=== PATIENT | female | born 1960 | race Caucasian/White ===

== ENCOUNTER 2017-07-25 15:00 | Inpatient (IN) | END 2017-07-28 16:06 | disposition home or self-care (01) | DRG 195 ==

== ENCOUNTER 2018-06-27 17:38 | Inpatient (IN) | payer OTHER ==
[~2018-06-27] VITALS: Ht 157.5 cm; Wt 77.8 kg
[~2018-06-27 17:38] MED LIST: ADV10050 INHALATION; ASPI-831 PO; BENZ-5 PO; GLIP5TAB13 PO; GUAI600T23 PO; INSU100I33 SC; LEVO750T25 PO; METF500T PO; OMEP20CA16 PO; SIMV40TA7 PO
[2018-06-27 19:30] VITALS: PULSE 90
[2018-06-27 19:57] VITALS: Ht 157.5 cm; Wt 77.8 kg
[2018-06-27 20:00] VITALS: BP 142/72; PULSE 88; PULSE 90; RESP 19
[2018-06-27] MEDS ORDERED: DOCUSATE SODIUM 100 MG CAP PO PRN (21:00)
[2018-06-27] MEDS ORDERED: NITROGLYCERIN (SL) 0.4 MG TAB SL PRN (21:00)
[2018-06-27] MEDS ORDERED: BENZONATATE 100 MG CAP PO PRN (21:00)
[2018-06-27] MEDS ORDERED: INSULIN GLARGINE [LANtus] 3 ML PEN SC SCH ×2 (21:00→23:30)
[2018-06-27] MEDS ORDERED: ONDANSETRON 4 MG INJ IV PRN (21:00)
[2018-06-27] MEDS ORDERED: NACL 0.9% 3 ML SYG IV SCH (21:00)
[2018-06-27] MEDS ORDERED: ACETAMINOPHEN 325 MG TAB PO PRN (21:00)
[2018-06-27] MEDS ORDERED: BISACODYL (EC) 5 MG TAB PO PRN (21:00)
[2018-06-27] MEDS ORDERED: HYDROCODONE/APAP (5/325) TAB PO PRN (21:00)
--- NOTE | 2018-06-27 21:01 | HP ---
Date/Time of Note Date/Time of Note DATE: 06/27/18 TIME: 21:01 Assessment/Plan VTE Prophylaxis Pharmacological prophylaxis: heparin Assessment/Plan Hospital Course This is a 58-year-old female being admitted to the telemetry floor for: #1 dyspnea and wheezing: Likely multifactorial secondary to undiagnosed CHF/asthma exacerbation. Patient does have wheezing on examination as well as lower extremity edema. At the current time we will give the patient scheduled nebulizers, Lasix 40 mg IV daily. Strict I's and O's. 1200 cc fluid restriction. I will hold off on steroids at the current time given the patient's elevated blood sugars. Consider steroids in the a.m. if indicated. Will obtain an EKG. patient denies any chest pain, nonetheless we will trend tr oponins, #2 suspect new diagnosis of CHF: We will obtain an echocardiogram, will check a BNP level it was 151 at the transferring facility.. Lasix 40 mg IV daily. Consider cardiology consultation. #3 asthma exacerbation: Need to confirm whether patient had a smoking history. Nebulizers scheduled at the current time, hold off on steroids given patient's elevated blood sugars once these are better controlled consider initiation of steroids if indicated. Continue home inhaler #4 diabetes mellitus: Resume patient's home medications, check hemoglobin A 1C, insulin sliding scale #5 Hyperlipidemia: Continue statin check lipid panel #6 GERD: Continue PPI #7 DVT GI prophylaxis: Heparin, PPI Further treatment strategy will be implemented as per the clinical course HPI/ROS Admit Date/Time Admit Date/Time Jun 27, 2018 at 18:49 Hx of Present Illness Chief complaint: Shortness of breath, chest pain This is a 58-year-old female with a past medical history of hypertension hyperlipidemia diabetes mellitus, asthma, cardiomegalu,, who presented to the ED at [facility] with shortness of breath times 1 week. Patient reported her symptoms are worse last night. She also had an associated productive cough with clear sputum and she positive orthopnea and dyspnea on exertion. She denied any abdominal pain nausea vomiting or diarrhea. Denies any body aches. Denies any history of CHF or tuberculosis. She did report sick contacts at home. Patient does take Advair carvedilol simvastatin omeprazole daily. She was seen in the past and was diagnosed with asthma vitals on presentation at the transfer facility showed temperature of 36.2 C/heart rate of 82/BP 115/52/respirations 24/SPO2 88% on room air The patient was given Solu-Medrol Lasix and a nebulization treatment at the transfer facility along with Rocephin Pertinent laboratory findings from the transfer facility please see chart for full details: White blood cells 9.3/hemoglobin 9.5/hematocrit 28.7/platelet count 351 BNP 151 Chest x-ray persistent mediastinal widening and enlargement of the hilum suspicious for adenopathy new moderate-sized right pleural effusion with lower lobe compressive atelectasis and volume loss stable cardiomegaly and atherosclerotic aortic calcification screws projected over T2 and T7 vertebral body may be artifactual or represent something lying on the skin surface Allergies: NKDA Medications: See MAR ROS Const: As per HPI Eyes : No pain discharge or redness or change in visual acuity ENT: No pain, sore throat, congestion, congestion, dysphagia or discharge Respiratory: As per HPI Cardiovascular: As per HPI GI : no change in appetite, abdominal pain, nausea, vomiting, diarrhea, constipation, or change in the color his stool Genitourinary: No dysuria, hematuria, flank pain , discharge or CVA tenderness Musculoskeletal: No joint pain, back pain, neck pain, restricted range of motion in neck or joints Skin: No rash, bruising or hives Neuro: No headache, dizziness, syncope, seizure, focal weakness Endocrine: No polyuria, polydipsia, temperature intolerance Psych: No hallucination, depression, anxiety or suicidal ideation PMH/Family/Social Past Medical History hypertension hyperlipidemia diabetes mellitus, asthma, cardiomegaly, GERD Medications Current Medications Aspirin (Aspirin) 81 mg DAILY PO ; Start 06/28/18 at 09:00; Status UNV Benzonatate (Tessalon) 200 mg TID PRN PO cough; Start 06/27/18 at 21:00; Status UNV Insulin Glargine (Lantus) 100 unit QHS SC ; Start 06/27/18 at 21:00; Status UNV Miscellaneous Information 20 mg DAILY PO ; Start 06/28/18 at 09:00; Status UNV Miscellaneous Information 1 inh BID INHALATION ; Start 06/27/18 at 21:00; Status UNV Miscellaneous Information 40 mg QHS PO ; Start 06/27/18 at 21:00; Status UNV Miscellaneous Information (* Miscellaneous Pharmacy Order) Discontinue current oral sulfonylur... ONCE ONCE XX ; Start 06/27/18 at 21:00; Stop 06/27/18 at 21:01; Status UNV Diagnostic Test (Pha) (Accu-Chek) 1 XX ; Start 06/28/18 at 02:00; Status UNV Miscellaneous Information (* Miscellaneous Pharmacy Order) HYPOGLYCEMIA PROTOCOL w... ONCE ONCE XX ; Start 06/27/18 at 21:00; Stop 06/27/18 at 21:01; Status UNV Insulin Aspart (Novolog Insulin Pen) NOVOLOG *MILD* ALGORITHM WITH MEALS BEDTIME SC ; Start 06/27/18 at 21:00; Status UNV Miscellaneous Information (* Miscellaneous Pharmacy Order) Discontinue all previ... ONCE ONCE XX ; Start 06/27/18 at 21:00; Stop 06/27/18 at 21:01; Status UNV IV Flush (NS 3 ml) 3 ml PER PROTOCOL IV ; Start 06/27/18 at 21:00; Status UNV Ondansetron HCl (Zofran Inj) 4 mg Q6H PRN IV NAUSEA/VOMITING; Start 06/27/18 at 21:00; Status UNV Nitroglycerin (Nitroglycerin (Sl Tab) 0.4 Mg) 1 tab Q5M PRN SL .CHEST PAIN; Start 06/27/18 at 21:00; Status UNV Acetaminophen (Tylenol Tab) 650 mg Q6H PRN PO .PAIN 1-3 OR TEMP; Start 06/27/18 at 21:00; Status UNV Acetaminophen/ Hydrocodone Bitart ([place] (5/325)) 1 tab Q6H PRN PO .PAIN 4-6; Start 06/27/18 at 21:00; Status UNV Docusate Sodium (Colace) 100 mg Q12H PRN PO .CONSTIPATION; Start 06/27/18 at 21:00; Status UNV Bisacodyl (Dulcolax) 5 mg DAILY PRN PO .CONSTIPATION; Start 06/27/18 at 21:00; Status UNV Heparin Sodium (Porcine) (Heparin (5000 Units/1ml)) 5,000 unit Q8 SC ; Start 06/27/18 at 22:00; Status UNV Coded Allergies: No Known Allergies (Verified Allergy, Unknown, 07/25/17) Past Surgical History Cholecystectomy Family History Significant Family History: no pertinent family hx Social History Alcohol Use: none Smoking Status: Unknown if ever smoked Drug Use: none Exam/Review of Systems Vital Signs Vitals Vital Signs Date Temp Pulse Resp B/P (MAP) Pulse Ox O2 O2 Flow FiO2 Time Delivery Rate 06/27/18 88 20:00 06/27/18 98.4 19 142/72 98 20:00 (95) Exam Exam General: Patient is currently sitting upright in bed in no acute respiratory distress HEENT: Atraumatic, normocephalic. The pupils are equal, round and reactive. Extraocular motor are intact Neck: Supple with full range of motion. No rigidity or meningismus Chest: Nontender Lungs: Coarse breath sounds and wheezing bilaterally, questionable rales at the bases, nonlabored breathing Heart: Normal S1-S2, Regular rhythm and rate. No murmur, S3, or S4 Abdomen: Soft , nontender, nondistended , bowel sounds are present. No guarding no rebound tenderness , No masses or organomegaly. No costovertebral temporal angle mass Extremities: Bilateral 1+ pitting edema lower extremities Neurologic: Normal mental status, speech normal, cranial nerves II through XII are intact, motor and sensory are intact, TAMMI LUGO Jun 27, 2018 21:01
[2018-06-27] MEDS ORDERED: GLUCOSE GEL 15 GRAM TUBE BUCCAL PRN (21:30)
[2018-06-27] MEDS ORDERED: DEXTROSE 50% 50 ML SYRINGE IV PRN ×2 (21:30)
[2018-06-27] MEDS ORDERED: GLUCAGON 1 MG INJ IM PRN (21:30)
[2018-06-27] MEDS ORDERED: GLUCOSE GEL 15 GRAM TUBE PO PRN ×2 (21:30)
[2018-06-27] MEDS: ATORVASTATIN 20 MG TAB PO SCH (22:34)
[2018-06-27] MEDS: INSULIN ASPART [NOVOLOG] 3 ML PEN SC SCH (22:50)
[2018-06-27] MEDS: HEPARIN 5,000 UNIT/1 ML VIAL SC SCH (22:51)
[2018-06-27] MEDS ORDERED: INSULIN ASPART [NOVOLOG] 3 ML PEN SC ONE (23:30)
[2018-06-28] VITALS (10 sets, daily range): BP systolic 97–135; BP diastolic 54–62; PULSE 80–93; RESP 18–20
[2018-06-28] MEDS ORDERED: predniSONE 20 MG TAB PO SCH (01:00)
[2018-06-28] MEDS: FLUTICASONE/VILANTEROL 100-25 INH SCH ×2 (01:00→08:30)
[2018-06-28] MEDS: FUROSEMIDE 40 MG INJ IV SCH (01:53)
[2018-06-28] MEDS: ACCU-CHEK XX SCH (02:00)
[2018-06-28] MEDS ORDERED: INSULIN ASPART [NOVOLOG] 3 ML PEN SC ONE (02:30)
[2018-06-28] MEDS: ALBUTEROL/IPRATROPIUM (NEB) 3 ML AMP HHN PRN ×2 (03:04→17:30)
[2018-06-28] MEDS: PANTOPRAZOLE (EC) 40 MG TAB PO SCH (06:41)
[2018-06-28] MEDS: HEPARIN 5,000 UNIT/1 ML VIAL SC SCH ×3 (06:52→22:38)
[2018-06-28] MEDS: ASPIRIN 81 MG TAB PO SCH (08:29)
[2018-06-28] MEDS ORDERED: INSULIN GLARGINE [LANtus] 3 ML PEN SC SCH (09:00)
[2018-06-28] MEDS ORDERED: FLUTICASONE/VILANTEROL 100-25 INH SCH (09:00)
[2018-06-28] MEDS ORDERED: INFLUENZA VIRUS VACCINE 0.5 ML (DISPENSING) IM* ONE (09:00)
[2018-06-28] MEDS: INSULIN ASPART [NOVOLOG] 3 ML PEN SC SCH ×5 (09:04→21:31)
[2018-06-28] MEDS: INSULIN GLARGINE [LANTus] (100 UNITS/ML) SYG SC SCH ×2 (10:19→21:20)
--- NOTE | 2018-06-28 12:08 | PN ---
Date/Time of Note Date/Time of Note DATE: 06/28/18 TIME: 12:08 Assessment/Plan VTE Prophylaxis Risk score (from Nsg)>0 risk: 2 SCD applied (from Nsg): Yes Pharmacological prophylaxis: heparin Lines/Catheters IV Catheter Type (from Nrsg): Peripheral IV Assessment/Plan Hospital Course S: still requiring O2 and coughing, producing phlegm -quit smoking about 1 month ago O: Constitutional: alert, oriented Head: atraumatic, normocephalic Neck: non-tender, supple Respiratory: R basal crackles , bouts of coughing Cardiovascular: regular rate and rhythm Gastrointestinal: S/ NT / ND / +BS Extremities: no edema, good radial pulses CXR: 1. Diffuse interstitial opacities in both lungs with small bilateral pleural effusions likely representing pulmonary edema in the setting of cardiomegaly. echo : EF 55%, abn diastolic fxn, Pul Pressure 55% assessment and plan: 58-year-old female with a past medical history of hypertension hyperlipidemia diabetes mellitus, asthma, cardiomegalu,, who presented to the ED at [facility] with shortness of breath times 1 week 1. Acute resp failure -2/2 #2 and #3 -still requiring supplemental O2 at 2L, -weaning as tolerated -has never been on home O2 2. New onset CHF ? Diastolic dysfxn -H2FPEF score of at least 5 and BNP >100 -ongoing gentle diuresis -cardiology consult ? -ACS ruled out 3. Mild COPD exacerbation -inhaled steroids, abx , bronchodilator -s/p IV steroids in ER and PO steroids 40mg X1 -no further wheezing on exam -will hold off on further steroids for now and see how she does olivier with hyperglycemia 4. DM2 A1c 10.2 -in house levels are still suboptimal -adjust insulin dosing -steroid dose likely contributed to hyperglycemia 5. CKD ? -creatinine improving?, continue serial labs 6. GERD: -home PPI 7. Hypomagnesemia -replete 8. Low TSH -in the setting of acute illness, likely unreliable, T4 wnl -recommend repeat in 6 weeks 9. NC Anemia -stable 10. Leucocytosis -reactive? steroids induced ? 12. Tobacco user -unconvincingly states she quit about 1 month ago, she was commended and counselled for at least 3 mins on the need to stay away from nicotine and options available to her to help with quitting and benefits of cessation, she verbalized understanding dispo: -continue supportive care, POC as above Result Diagram: 06/28/18 0340 06/28/18 0340 Results 24hrs Laboratory Tests Test 06/27/18 21:07 06/27/18 22:26 06/28/18 01:58 06/28/18 03:00 White Blood Count 10.6 Red Blood Count 3.39 L Hemoglobin 10.0 L Hematocrit 31.3 L Mean Corpuscular 92.3 Volume Mean Corpuscular 29.5 Hemoglobin Mean Corpuscular 31.9 L Hemoglobin Concent Red Cell 13.0 Distribution Width Platelet Count 372 Mean Platelet Volume 8.9 Immature 1.800 H Granulocytes % Neutrophils % 87.4 H Lymphocytes % 9.8 L Monocytes % 0.8 Eosinophils % 0.0 Basophils % 0.2 Nucleated Red Blood 0.0 Cells % Immature 0.190 H Granulocytes # Neutrophils # 9.3 H Lymphocytes # 1.0 Monocytes # 0.1 L Eosinophils # 0.0 Basophils # 0.0 Nucleated Red Blood 0.0 Cells # Sodium Level 139 Potassium Level 4.3 Chloride Level 103 Carbon Dioxide Level 28 Anion Gap 8 Blood Urea Nitrogen 26 H Creatinine 1.04 H Est Glomerular 54 L Filtrat Rate mL/min Glucose Level 429 *H Calcium Level 8.8 Total Bilirubin 0.0 L Direct Bilirubin 0.00 Indirect Bilirubin 0.0 Aspartate Amino 14 L Transf (AST/SGOT) Alanine 12 L Aminotransferase (AL T/SGPT) Alkaline Phosphatase 127 H Creatine Kinase 141 Creatine Kinase 2.1 Index Creatinine Kinase MB 3.03 H (Mass) Troponin I < 0.012 B-Type Natriuretic 440 H Peptide Total Protein 6.4 Albumin 3.1 L Globulin 3.30 H Albumin/Globulin 0.93 Ratio Bedside Glucose 429 *H 385 H Urine Color STRAW Urine Clarity CLEAR Urine pH 5.0 Urine Specific 1.010 [place] Urine Ketones NEGATIVE Urine Nitrite NEGATIVE Urine Bilirubin NEGATIVE Urine Urobilinogen NEGATIVE Urine Leukocyte NEGATIVE Esterase Urine Microscopic 2 RBC Urine Microscopic 2 WBC Urine Hemoglobin 1+ H Urine Glucose 3+ H Urine Total Protein 2+ H Test 06/28/18 03:39 06/28/18 03:40 06/28/18 07:54 06/28/18 10:15 Hemoglobin A1c 10.2 H Creatine Kinase 144 Creatine Kinase 2.8 Index Creatinine Kinase MB 3.98 H (Mass) Troponin I 0.017 White Blood Count 10.9 H Red Blood Count 3.38 L Hemoglobin 10.0 L Hematocrit 30.5 L Mean Corpuscular 90.2 Volume Mean Corpuscular 29.6 Hemoglobin Mean Corpuscular 32.8 Hemoglobin Concent Red Cell 12.8 Distribution Width Platelet Count 392 Mean Platelet Volume 9.0 Immature 1.400 H Granulocytes % Neutrophils % 80.3 H Lymphocytes % 14.6 L Monocytes % 3.4 Eosinophils % 0.0 Basophils % 0.3 Nucleated Red Blood 0.0 Cells % Immature 0.150 H Granulocytes # Neutrophils # 8.8 H Lymphocytes # 1.6 Monocytes # 0.4 Eosinophils # 0.0 Basophils # 0.0 Nucleated Red Blood 0.0 Cells # Sodium Level 139 Potassium Level 4.1 Chloride Level 99 Carbon Dioxide Level 30 Anion Gap 10 Blood Urea Nitrogen 31 H Creatinine 1.29 H Est Glomerular 42 L Filtrat Rate mL/min Glucose Level 328 H Calcium Level 8.8 Magnesium Level 1.6 L Total Bilirubin 0.1 L Direct Bilirubin 0.00 Indirect Bilirubin 0.1 Aspartate Amino 14 L Transf (AST/SGOT) Alanine 17 Aminotransferase (AL T/SGPT) Alkaline Phosphatase 133 H Total Protein 6.4 Albumin 3.2 L Globulin 3.20 Albumin/Globulin 1.00 Ratio Thyroid Stimulating 0.323 L Hormone (TSH) Bedside Glucose 282 H 307 H Test 06/28/18 11:45 Bedside Glucose 315 H Exam/Review of Systems Exam Vitals Vital Signs Date Temp Pulse Resp B/P (MAP) Pulse Ox O2 O2 Flow FiO2 Time Delivery Rate 06/28/18 98.0 86 20 128/60 99 11:30 (82) 06/28/18 Nasal 2.0 27 03:07 Cannula Intake and Output 06/27/18 06/27/18 06/28/18 1515:00 23:00 07:00 IntakeIntake Total 650 ml OutputOutput Total 500 ml BalanceBalance 150 ml Results Results 24hrs Laboratory Tests Test 06/27/18 21:07 06/27/18 22:26 06/28/18 01:58 06/28/18 03:00 White Blood Count 10.6 Red Blood Count 3.39 L Hemoglobin 10.0 L Hematocrit 31.3 L Mean Corpuscular 92.3 Volume Mean Corpuscular 29.5 Hemoglobin Mean Corpuscular 31.9 L Hemoglobin Concent Red Cell 13.0 Distribution Width Platelet Count 372 Mean Platelet Volume 8.9 Immature 1.800 H Granulocytes % Neutrophils % 87.4 H Lymphocytes % 9.8 L Monocytes % 0.8 Eosinophils % 0.0 Basophils % 0.2 Nucleated Red Blood 0.0 Cells % Immature 0.190 H Granulocytes # Neutrophils # 9.3 H Lymphocytes # 1.0 Monocytes # 0.1 L Eosinophils # 0.0 Basophils # 0.0 Nucleated Red Blood 0.0 Cells # Sodium Level 139 Potassium Level 4.3 Chloride Level 103 Carbon Dioxide Level 28 Anion Gap 8 Blood Urea Nitrogen 26 H Creatinine 1.04 H Est Glomerular 54 L Filtrat Rate mL/min Glucose Level 429 *H Calcium Level 8.8 Total Bilirubin 0.0 L Direct Bilirubin 0.00 Indirect Bilirubin 0.0 Aspartate Amino 14 L Transf (AST/SGOT) Alanine 12 L Aminotransferase (AL T/SGPT) Alkaline Phosphatase 127 H Creatine Kinase 141 Creatine Kinase 2.1 Index Creatinine Kinase MB 3.03 H (Mass) Troponin I < 0.012 B-Type Natriuretic 440 H Peptide Total Protein 6.4 Albumin 3.1 L Globulin 3.30 H Albumin/Globulin 0.93 Ratio Bedside Glucose 429 *H 385 H Urine Color STRAW Urine Clarity CLEAR Urine pH 5.0 Urine Specific 1.010 [place] Urine Ketones NEGATIVE Urine Nitrite NEGATIVE Urine Bilirubin NEGATIVE Urine Urobilinogen NEGATIVE Urine Leukocyte NEGATIVE Esterase Urine Microscopic 2 RBC Urine Microscopic 2 WBC Urine Hemoglobin 1+ H Urine Glucose 3+ H Urine Total Protein 2+ H Test 06/28/18 03:39 06/28/18 03:40 06/28/18 07:54 06/28/18 10:15 Hemoglobin A1c 10.2 H Creatine Kinase 144 Creatine Kinase 2.8 Index Creatinine Kinase MB 3.98 H (Mass) Troponin I 0.017 White Blood Count 10.9 H Red Blood Count 3.38 L Hemoglobin 10.0 L Hematocrit 30.5 L Mean Corpuscular 90.2 Volume Mean Corpuscular 29.6 Hemoglobin Mean Corpuscular 32.8 Hemoglobin Concent Red Cell 12.8 Distribution Width Platelet Count 392 Mean Platelet Volume 9.0 Immature 1.400 H Granulocytes % Neutrophils % 80.3 H Lymphocytes % 14.6 L Monocytes % 3.4 Eosinophils % 0.0 Basophils % 0.3 Nucleated Red Blood 0.0 Cells % Immature 0.150 H Granulocytes # Neutrophils # 8.8 H Lymphocytes # 1.6 Monocytes # 0.4 Eosinophils # 0.0 Basophils # 0.0 Nucleated Red Blood 0.0 Cells # Sodium Level 139 Potassium Level 4.1 Chloride Level 99 Carbon Dioxide Level 30 Anion Gap 10 Blood Urea Nitrogen 31 H Creatinine 1.29 H Est Glomerular 42 L Filtrat Rate mL/min Glucose Level 328 H Calcium Level 8.8 Magnesium Level 1.6 L Total Bilirubin 0.1 L Direct Bilirubin 0.00 Indirect Bilirubin 0.1 Aspartate Amino 14 L Transf (AST/SGOT) Alanine 17 Aminotransferase (AL T/SGPT) Alkaline Phosphatase 133 H Total Protein 6.4 Albumin 3.2 L Globulin 3.20 Albumin/Globulin 1.00 Ratio Thyroid Stimulating 0.323 L Hormone (TSH) Bedside Glucose 282 H 307 H Test 06/28/18 11:45 Bedside Glucose 315 H Medications Medication Current Medications Aspirin (Aspirin) 81 mg DAILY PO Last administered on 06/28/18 08:29; Admin Dose 81 MG; Start 06/28/18 at 09:00 Benzonatate (Tessalon) 200 mg TID PRN PO cough Last administered on 06/27/18 23:40; Admin Dose 200 MG; Start 06/27/18 at 21:00 Pantoprazole (Protonix Tab) 40 mg DAILY@0600 PO Last administered on 06/28/18 06:41; Admin Dose 40 MG; Start 06/28/18 at 06:00 Atorvastatin Calcium (Lipitor) 20 mg QHS PO Last administered on 06/27/18 22:34; Admin Dose 20 MG; Start 06/27/18 at 21:00 Diagnostic Test (Pha) (Accu-Chek) 1 ea 02 XX ; Start 06/28/18 at 02:00 Insulin Aspart (Novolog Insulin Pen) NOVOLOG *MILD* ALGORITHM WITH MEALS BEDTIME SC Last administered on 06/28/18 11:49; Admin Dose 5 UNIT; Start 06/27/18 at 22:00 IV Flush (NS 3 ml) 3 ml PER PROTOCOL IV ; Start 06/27/18 at 21:00 Ondansetron HCl (Zofran Inj) 4 mg Q6H PRN IV NAUSEA/VOMITING; Start 06/27/18 at 21:00 Nitroglycerin (Nitroglycerin (Sl Tab) 0.4 Mg) 1 tab Q5M PRN SL .CHEST PAIN; Start 06/27/18 at 21:00 Acetaminophen (Tylenol Tab) 650 mg Q6H PRN PO .PAIN 1-3 OR TEMP; Start 06/27/18 at 21:00 Acetaminophen/ Hydrocodone Bitart ([place] (5/325)) 1 tab Q6H PRN PO .PAIN 4-6; Start 06/27/18 at 21:00 Docusate Sodium (Colace) 100 mg Q12H PRN PO .CONSTIPATION; Start 06/27/18 at 21:00 Bisacodyl (Dulcolax) 5 mg DAILY PRN PO .CONSTIPATION; Start 06/27/18 at 21:00 Heparin Sodium (Porcine) (Heparin (5000 Units/1ml)) 5,000 unit Q8 SC Last administered on 06/28/18at 06:52; Admin Dose 5,000 UNIT; Start 06/27/18 at 22:00 Miscellaneous Information 1 ea NOTE XX ; Start 06/27/18 at 21:30 Glucose (Glutose) 15 gm Q15M PRN PO DECREASED GLUCOSE; Start 06/27/18 at 21:30 Glucose (Glutose) 22.5 gm Q15M PRN PO DECREASED GLUCOSE; Start 06/27/18 at 21:30 Dextrose (D50w Syringe) 25 ml Q15M PRN IV DECREASED GLUCOSE; Start 06/27/18 at 21:30 Dextrose (D50w Syringe) 50 ml Q15M PRN IV DECREASED GLUCOSE; Start 06/27/18 at 21:30 Glucagon (Glucagen) 1 mg Q15M PRN IM DECREASED GLUCOSE; Start 06/27/18 at 21:30 Glucose (Glutose) 15 gm Q15M PRN BUCCAL DECREASED GLUCOSE; Start 06/27/18 at 21:30 Fluticasone/ Vilanterol (Breo Ellipta 100-25 Mcg Inh) 1 inh DAILY INH Last administered on 06/28/18at 08:30; Admin Dose 1 INH; Start 06/28/18 at 01:00 Albuterol/ Ipratropium (Duoneb) 3 ml Q4H RESP THERAPY PRN HHN SHORTNESS OF BREATH Last administered on 06/28/18at 03:04; Admin Dose 3 ML; Start 06/28/18 at 01:00 Furosemide (Lasix) 40 mg DAILY IV Last administered on 06/28/18at 01:53; Admin Dose 40 MG; Start 06/28/18 at 01:00 Insulin Glargine (Lantus) 25 units BID SC Last administered on 06/28/18at 10:19; Admin Dose 25 UNITS; Start 06/28/18 at 09:30 Influenza Virus Vaccine Quadrival (Fluzone) 0.5 ml ONCE ONCE IM* ; Start 06/29/18 at 10:00; Stop 06/29/18 at 10:01 Magnesium Sulfate 50 ml @ 25 mls/hr ONCE ONCE IVPB ; Start 06/28/18 at 12:30; Stop 06/28/18 at 14:29; Status FARSHAD MURCIA Jun 28, 2018 12:08
[2018-06-28] MEDS ORDERED: MAGNESIUM SULFATE 2 GM/50 ML 50 ML IVPB ONE (12:30)
--- NOTE | 2018-06-28 13:28 | RADRPT ---
Echocardiogram Report Patient Name: Shar FITZGERALDtient ID: [id number] : 1960 (58y 4m)Study Date: 06/28/2018 7:19:20 AM Gender: FAccession #: [id number] Tech: Hailey Alvarado RDCS Location: [facility] Ref.Physician: TAMMI LUGO Height(Cm): BSA: Weight(Kg): Quality: AdequateAccount #: Procedures: Echocardiographic Report: Transthoracic echocardiogram with complete 2D, M-Mode, and doppler examination. Indications: Congestive Heart Failure. Measurements: 2D/M Mode Doppler Measurement Value Normal Range Measurement Value Normal Range LVIDd 2D 4.5 [ 3.8 - 5.2 ] cm AV Peak Garrett 1.5 [ 100.0 - 170.0 ] cm/sec LVIDs 2D 2.6 [ 2.2 - 3.5 ] cm AV Peak PG 9.0 [ 2.0 - 9.0 ] mmHg LVPWd 2D 1.0 [ 0.6 - 0.9 ] cm LVOT Peak Garrett 1.0 [ 70.0 - 110.0 ] cm/sec IVSd 2D 0.9 [ 0.6 - 0.9 ] cm LVOT Peak PG 4.0 [ 2.0 - 6.0 ] mmHg AoR Diam 2D 2.4 [ 2.3 - 3.1 ] cm MV E Peak Garrett 1.1 [ 60.0 - 130.0 ] cm/sec EDV 2D 94.4 [ 46.0 - 106.0 ] ml MV A Peak Garrett 0.9 [ 100.0 - 120.0 ] cm/sec ESV 2D 23.9 [ 14.0 - 42.0 ] ml MV E/A 1.3 [ 0.8 - 1.5 ] ratio EF 2D 74.7 [ 54.0 - 74.0 ] percent MV Decel Time 158 [ 104 - 258 ] msec LA Dimen 2D 3.7 [ 2.7 - 3.8 ] cm Lat E` Garrett 0.1 [ 10.0 - 15.0 ] cm/sec Lateral E/E` 15.0 [ 1.0 - 2.0 ] ratio Med E` Garrett 0.1 cm/sec MV E/A 1.3 [ 0.8 - 1.5 ] ratio TR Peak Garrett 3.2 [ 100.0 - 280.0 ] cm/sec TR Peak PG 40.0 mmHg RVSP 10.0 [ 10.0 - 36.0 ] mmHg RA Pressure 50.0 mmHg Findings: Left Ventricle: Normal left ventricular systolic function. Normal left ventricular cavity size. Normal left ventricular wall thickness. Ejection fraction is visually estimated at 55 %. Abnormal Diastolic Function. Right Ventricle: Normal right ventricular size. Normal right ventricular systolic function. Left Atrium: The left atrium is normal in size. Right Atrium: The right atrium is normal in size. Mitral Valve: Normal appearance and function of the mitral valve with trace physiologic regurgitation. Aortic Valve: Normal appearance of the aortic valve. No significant aortic stenosis or insufficiency. Tricuspid Valve: Normal appearance of the tricuspid valve. Estimated peak PA systolic pressure 50 mmHg. There is mild tricuspid regurgitation. Pulmonic Valve: Normal pulmonic valve appearance. Pericardium: Normal pericardium with no significant pericardial effusion. Aorta: Normal aortic root. IVC: Normal size and normal respiratory collapse consistent with normal right atrial pressure. Conclusions: Normal left ventricular systolic function. Normal left ventricular cavity size. Normal left ventricular wall thickness. Ejection fraction is visually estimated at 55 %. Abnormal Diastolic Function. Normal appearance and function of the mitral valve with trace physiologic regurgitation. Normal appearance of the aortic valve. No significant aortic stenosis or insufficiency. Normal appearance of the tricuspid valve. Estimated peak PA systolic pressure 50 mmHg. There is mild tricuspid regurgitation. Electronically Signed By: Aston Nicole 2018-06-28 13:28:10 PDT
[2018-06-28] MEDS ORDERED: LEVOFLOXACIN 500MG/D5W (PMX) 100 ML IVPB SCH (16:30)
[2018-06-28] MEDS: ARFORMOTEROL TARTRATE 15MCG/2 ML AMP NEB SCH (19:40)
[2018-06-28] MEDS: BUDESONIDE (NEB) 0.25 MG/2 ML AMP HHN SCH (19:47)
[2018-06-28] MEDS: ATORVASTATIN 20 MG TAB PO SCH (21:07)
[2018-06-29] VITALS (8 sets, daily range): BP systolic 117–142; BP diastolic 55–74; PULSE 79–97; RESP 18–20
[2018-06-29] MEDS: ACCU-CHEK XX SCH (02:00)
[2018-06-29] MEDS: PANTOPRAZOLE (EC) 40 MG TAB PO SCH (06:25)
[2018-06-29] MEDS: HEPARIN 5,000 UNIT/1 ML VIAL SC SCH ×2 (06:50→13:46)
[2018-06-29] MEDS: INSULIN ASPART [NOVOLOG] 3 ML PEN SC SCH ×4 (07:55→12:10)
[2018-06-29] MEDS: INSULIN GLARGINE [LANTus] (100 UNITS/ML) SYG SC SCH (07:56)
[2018-06-29] MEDS: ASPIRIN 81 MG TAB PO SCH (08:22)
[2018-06-29] MEDS: FUROSEMIDE 40 MG INJ IV SCH (08:22)
[2018-06-29] MEDS: ARFORMOTEROL TARTRATE 15MCG/2 ML AMP NEB SCH (08:44)
[2018-06-29] MEDS: BUDESONIDE (NEB) 0.25 MG/2 ML AMP HHN SCH (08:45)
--- NOTE | 2018-06-29 15:33 | RADRPT ---
Vent Rate: 87 bpm RR Interval: 0 msec ID Interval: 170 msec QRS Duration: 86 msec QT Interval: 354 msec QTC Interval: 425 msec P-R-T [place]: 82 - 76 - 69 degrees Normal sinus rhythm Normal ECG Electronically Signed By: Alan Kerr
--- NOTE | 2018-06-29 16:39 | PDOCDIS ---
Discharge Instructions DIAGNOSIS Discharge Diagnosis 1. New diagnosis of mild diastolic CHF 2. Acute Reactive airway disease versus COPD exacerbation 3 CONDITION [id number] Patient Condition: [id number] Stable HOME CARE INSTRUCTIONS: [id number] Diet Instructions: [id number] Reduced Sodium [id number] Your diet recommendation is: [id number] low fat, low cholesterol, high fiber OTHER ORDERS: Other Orders: Followup with your primary doctor within the next 1-2 weeks. If you don't have one please let someone know, we can give you resources that may help you pick one. 1. You need to have your PCP repeat your thyroid function test in abut 6 weeks after you feel better 2. Please stop smoking. If you have already stopped, Good for you!!!. It is however an ongoing process. If you need help or resources, please let someone know before you leave. We are here to help you. It has been associated with a lot of disease processes and is not favorable for healing. 3. You also have a small 4mm kidney stone on the Right side, It should pass by it self you don't have to do anything. You may let you PCP know. 4. Review your medication list with your nurse before leaving and if you need new prescriptions please let your nurse know. 5. I may have made changes to your home medications or given you new prescriptions, please let your primary doctor know as well. 6. Stay compliant with your medications and report any side effects to your PCP or pharmacist. 7. Return to the ER if you have any concerns and cannot reach your doctors or call your insurance company, they usually have a nurse that can help you. FARSHAD RAMIREZ Jun 29, 2018 16:39
[2018-06-29] MEDS ORDERED: PRED10TA PO (16:52)
[2018-06-29] MEDS ORDERED: LACT1CAP57 PO (16:52)
[2018-06-29] MEDS ORDERED: INSU100I33 SC (16:52)
[2018-06-29] MEDS ORDERED: NOVMIX SC (16:52)
[2018-06-29] MEDS ORDERED: IPRA3AMP29 INHALATION (16:52)
[2018-06-29] MEDS ORDERED: AMOX1TAB10 PO (16:52)
[2018-06-29] MEDS ORDERED: ADV10050 INHALATION (16:52)
[2018-06-29] MEDS ORDERED: POTA8CAP PO (16:52)
[2018-06-29] MEDS ORDERED: FURO-109 PO (16:52)
[2018-06-29] MEDS ORDERED: NEBU-113 MC (16:52)
== END 2018-06-29 17:47 | disposition home or self-care (01) | DRG 291 ==
LOC: TEL 18:49
PROVIDERS: ADMIT Internal Medicine; ATTEND Internal Medicine
DX: I13.0 Hypertensive heart and chronic kidney disease with heart failure and stage 1 through stage 4 chronic kidney disease, or unspecified chronic kidney disease (principal); I50.31 Acute diastolic (congestive) heart failure; J96.00 Acute respiratory failure, unspecified whether with hypoxia or hypercapnia; J45.901 Unspecified asthma with (acute) exacerbation; J44.1 Chronic obstructive pulmonary disease with (acute) exacerbation; E11.9 Type 2 diabetes mellitus without complications; E78.5 Hyperlipidemia, unspecified; K21.9 Gastro-esophageal reflux disease without esophagitis; D72.829 Elevated white blood cell count, unspecified; D64.9 Anemia, unspecified; E83.42 Hypomagnesemia; N18.9 Chronic kidney disease, unspecified; Z72.0 Tobacco use; Z79.4 Long term (current) use of insulin
CPT/HCPCS: 71045; 76775; 80053; 81001; 82550; 82553; 82962; 83036; 83735; 83880; 84443; 84484; 85025; 90686; 93005; 93306; 94640; 94664; J1644; J1815; J1940; J1956; J3475